=== PATIENT | female | born 1940 | race Caucasian/White ===

== ENCOUNTER 2023-09-10 13:59 | Inpatient (IN) | payer OTHER ==
[~2023-09-10] VITALS: Ht 152.4 cm; Wt 54.4 kg
[2023-09-10 14:19] VITALS: BP_SYST 140; PULSE 86; RESP 19; TEMP 97.2; O2SAT 97
[2023-09-10] MEDS ORDERED: NACL 0.9% 1,000 ML IV ONE (14:45)
[2023-09-10] MEDS ORDERED: KETOROLAC TROMETHAMINE 30 MG VIAL IVP ONE (14:45)
[2023-09-10 15:03] LABS: BASOPHILS # (AUTO) 0.1 K/uL (0.0-0.2); BASOPHILS % (AUTO) 0.7 % (0.0-2.0); EOSINOPHILS % (AUTO) 0.1 % (0.0-4.0); HEMATOCRIT 39.1 % (36-48); HEMOGLOBIN 12.7 g/dL (12.0-16.0); LYMPHOCYTES # (AUTO) 1.1 K/uL (1.0-5.5); LYMPHOCYTES % (AUTO) 7.7 % (20.5-51.5); MEAN CORPUSCULAR HEMOGLOBIN 29 pg (27-31); MEAN CORPUSCULAR HGB CONC 33 % (32-36); MEAN CORPUSCULAR VOLUME 89 fL (79.0-98.0); MONOCYTES # (AUTO) 0.8 K/uL (0.0-1.0); MONOCYTES % (AUTO) 5.5 % (1.7-9.3); NEUTROPHILS # (AUTO) 12.2 K/uL (1.8-7.7); PLATELET COUNT (AUTO) 348 K/uL (130-430); RED BLOOD CELL COUNT(AUTO) 4.39 MIL/uL (4.2-6.2); RED CELL DISTRIBUTION WIDTH 13.7 % (9.0-15.0); WHITE BLOOD COUNT (AUTO) 14.2 K/uL (4.8-10.8)
[2023-09-10 15:33] LABS: ALANINE AMINOTRANSFERASE 15 U/L (12-78); ALBUMIN 3.8 g/dL (3.4-4.8); ANION GAP 6 (5-15); ASPARTATE AMINOTRANSFERASE 15 U/L (10-37); BILIRUBIN,DIRECT 0.2 mg/dL (0.0-0.3); CALCIUM 10.2 mg/dL (8.4-11.0); CARBON DIOXIDE 27 mmol/L (23-29); CHLORIDE 103 mmol/L (98-107); CREATININE 0.76 mg/dL (0.55-1.30); GLUCOSE 150 mg/dL (74-106); POTASSIUM 3.1 mmol/L (3.5-5.1); SODIUM SERUM 136 mmol/L (136-145); TOTAL BILIRUBIN 0.5 mg/dL (0.0-1.0); UREA NITROGEN, BLOOD 23 mg/dL (8-21)
[2023-09-10] MEDS ORDERED: POTASSIUM CHLORIDE 20 MEQ TABLET.ER PO ONE (19:00)
[2023-09-10 19:26] LABS: BILIRUBIN,URINE NEGATIVE (NEGATIVE); CLARITY/URINE CLEAR (CLEAR); COLOR,URINE YELLOW (YELLOW); GLUCOSE,URINE NEGATIVE (NEGATIVE); KETONES,URINE TRACE (NEGATIVE); LEUKOCYTE ESTERASE ,URINE NEGATIVE (NEGATIVE); NITRITE, URINE NEGATIVE (NEGATIVE); PROTEIN URINE NEGATIVE (NEGATIVE); UROBILINOGEN,URINE 0.2 (0.2-1.0)
[2023-09-10 19:29] LABS: BLOOD, URINE TRACE (NEGATIVE)
[2023-09-10] MEDS ORDERED: KETOROLAC TROMETHAMINE 30 MG VIAL ONE (19:40)
[2023-09-10 19:43] LABS: BACTERIA,URINE MANY /HPF (None Seen); WBC,URINE 0-3 /HPF (0-3)
[2023-09-10] MEDS ORDERED: ACETAMINOPHEN 500 MG TABLET PO ONE (19:45)
[2023-09-10] MEDS ORDERED: cefTRIAXone 1 GM IVPB PREMIX 50 ML IV ONE (22:30)
[2023-09-10] MEDS ORDERED: metroNIDAZOLE 500 mg/NS 100 ML IV ONE (22:30)
[2023-09-10] MEDS ORDERED: cefTRIAXone 1 GM in D5W 50 ML IV SCH ×2 (23:00→23:15)
[2023-09-10] MEDS ORDERED: ONDANSETRON HCL 4 MG/2 ML VIAL IVP PRN (23:15)
[2023-09-10] MEDS ORDERED: PANTOPRAZOLE SODIUM 40 MG TAB PO ONE (23:15)
[2023-09-11] MEDS: KETOROLAC TROMETHAMINE 15 MG VIAL IVP PRN ×3 (01:00→19:09)
[2023-09-11] MEDS: cloNIDine HCL 0.1 MG TABLET PO PRN ×3 (01:51→10:21)
[2023-09-11 07:13] LABS: BASOPHILS # (AUTO) 0.1 K/uL (0.0-0.2); BASOPHILS % (AUTO) 0.9 % (0.0-2.0); EOSINOPHILS # (AUTO) 0.3 K/uL (0.0-0.4); EOSINOPHILS % (AUTO) 2.5 % (0.0-4.0); HEMATOCRIT 39.2 % (36-48); HEMOGLOBIN 13.2 g/dL (12.0-16.0); LYMPHOCYTES # (AUTO) 1.3 K/uL (1.0-5.5); LYMPHOCYTES % (AUTO) 11.8 % (20.5-51.5); MEAN CORPUSCULAR HEMOGLOBIN 30 pg (27-31); MEAN CORPUSCULAR HGB CONC 34 % (32-36); MEAN CORPUSCULAR VOLUME 89 fL (79.0-98.0); MONOCYTES # (AUTO) 0.9 K/uL (0.0-1.0); MONOCYTES % (AUTO) 8.3 % (1.7-9.3); NEUTROPHILS # (AUTO) 8.3 K/uL (1.8-7.7); NEUTROPHILS % (AUTO) 76.5 % (40.0-70.0); PLATELET COUNT (AUTO) 306 K/uL (130-430); RED BLOOD CELL COUNT(AUTO) 4.41 MIL/uL (4.2-6.2); RED CELL DISTRIBUTION WIDTH 13.8 % (9.0-15.0); WHITE BLOOD COUNT (AUTO) 10.8 K/uL (4.8-10.8)
[2023-09-11 07:30] LABS: INR 1.1 (0.8-1.2); PROTHROMBIN TIME 11.6 SECS (9.5-12.5)
[2023-09-11 08:01] LABS: ALANINE AMINOTRANSFERASE 15 U/L (12-78); ALBUMIN 3.1 g/dL (3.4-4.8); ANION GAP 6 (5-15); ASPARTATE AMINOTRANSFERASE 13 U/L (10-37); CALCIUM 10.2 mg/dL (8.4-11.0); CARBON DIOXIDE 27 mmol/L (23-29); CHLORIDE 105 mmol/L (98-107); CREATININE 0.54 mg/dL (0.55-1.30); FREE T4 (FREE THYROXINE) 1.2 ng/dl (0.8-1.5); GLUCOSE 113 mg/dL (74-106); LIPASE 24 U/L (16-77); POTASSIUM 3.8 mmol/L (3.5-5.1); SODIUM SERUM 138 mmol/L (136-145); THYROID STIMULATING HORMONE 1.42 uIu/mL (0.36-3.74); TOTAL BILIRUBIN 0.9 mg/dL (0.0-1.0); TOTAL PROTEIN, SERUM 6.2 g/dL (6.4-8.3); UREA NITROGEN, BLOOD 14 mg/dL (8-21)
[2023-09-11] MEDS: D5LR 1,000 ML IV SCH (13:58)
[2023-09-11 14:50] LABS: CHOLESTEROL 156 mg/dL (<200); HDL CHOLESTEROL 99 mg/dL (>55); TRIGLYCERIDES 36 mg/dL (30-150)
[2023-09-11] MEDS: PANTOPRAZOLE SODIUM 40 MG TAB PO SCH (15:22)
[2023-09-11] MEDS ORDERED: PANTOPRAZOLE SODIUM 40 MG TAB PO ONE (15:22)
[2023-09-11] MEDS ORDERED: ASPI-1393 PO (16:16)
[2023-09-11] MEDS ORDERED: LIDO1ADH48 TD (16:16)
[2023-09-11] MEDS ORDERED: ACET-2766 PO (16:16)
[2023-09-11] MEDS ORDERED: DOCU250C71 PO (16:16)
[2023-09-11] MEDS ORDERED: CLOP75TA32 PO (16:16)
[2023-09-11] MEDS ORDERED: NOR10 PO (16:16)
[2023-09-11] MEDS ORDERED: BUSP15TA3 PO (16:16)
[2023-09-11] MEDS ORDERED: METO50TA16 PO (16:36)
[2023-09-11] MEDS ORDERED: GABA300T25 (16:36)
[2023-09-11] MEDS ORDERED: VENL75CA56 PO (16:36)
[2023-09-11] MEDS ORDERED: FAMO40TA7 PO (16:36)
[2023-09-11] MEDS ORDERED: MEMA5TAB42 PO (16:36)
[2023-09-11] MEDS ORDERED: VENL150C53 PO (16:36)
[2023-09-11] MEDS ORDERED: PANT20TA16 PO (16:36)
[2023-09-11] MEDS ORDERED: ISOS30TA85 PO (16:36)
[2023-09-11] MEDS: ACETAMINOPHEN 325 MG TABLET PO PRN (17:57)
[2023-09-11 18:02] VITALS: BP_SYST 157; PULSE 98; RESP 18; TEMP 95.8; O2SAT 93
[2023-09-11] MEDS ORDERED: NITROGLYCERIN 0.4 MG TAB.SUBL SL PRN (19:00)
[2023-09-11] MEDS ORDERED: busPIRone HCL 5 MG TABLET PO ONE (19:15)
[2023-09-11] MEDS ORDERED: ISOSORBIDE MONONITRATE 30 MG TAB.ER.24H PO ONE (19:15)
[2023-09-11] MEDS ORDERED: cloNIDine HCL 0.1 MG TABLET PO PRN (19:15)
[2023-09-11] MEDS ORDERED: CLOPIDOGREL BISULFATE 75 MG TABLET PO ONE (19:15)
[2023-09-11 20:00] VITALS: BP_SYST 160; PULSE 88; RESP 18; TEMP 98.1; O2SAT 95
[2023-09-11] MEDS: DOCUSATE SODIUM 250 MG CAPSULE PO SCH (20:34)
[2023-09-11] MEDS: traMADol HCL HCL 50 MG TABLET (ULTRAM) PO SCH (20:35)
[2023-09-11] MEDS: cefTRIAXone 1 GM in D5W 50 ML IV SCH (23:07)
[2023-09-12] VITALS: BP_SYST 145; PULSE 100; RESP 18; TEMP 98; O2SAT 95
[2023-09-12] MEDS ORDERED: DILTIAZEM HCL 60 MG TABLET ONE (00:25)
[2023-09-12] MEDS ORDERED: dilTIAZem HCL IVP 5 MG/ML VIAL ONE (00:26)
[2023-09-12] MEDS ORDERED: DILTIAZEM HCL 60 MG TABLET PO ONE (00:30)
[2023-09-12] MEDS ORDERED: dilTIAZem HCL IVP 5 MG/ML VIAL IVP ONE (00:30)
[2023-09-12] MEDS: D5LR 1,000 ML IV SCH ×2 (04:59→20:20)
[2023-09-12] MEDS: KETOROLAC TROMETHAMINE 15 MG VIAL IVP PRN ×3 (06:10→18:15)
[2023-09-12 08:09] VITALS: BP_SYST 158; PULSE 98; RESP 18; TEMP 98.8; O2SAT 98
[2023-09-12] MEDS: MEMANTINE HCL 5 MG TABLET PO SCH (08:32)
[2023-09-12] MEDS: ASPIRIN 81 MG TABLET(ECOTRIN) PO SCH (08:33)
[2023-09-12] MEDS: ACETAMINOPHEN 500 MG TABLET PO SCH (08:34)
[2023-09-12] MEDS: busPIRone HCL 5 MG TABLET PO SCH (08:34)
[2023-09-12] MEDS: DOCUSATE SODIUM 250 MG CAPSULE PO SCH ×2 (08:34→20:16)
[2023-09-12] MEDS: Effexor XR 37.5 MG PO SCH (08:35)
[2023-09-12] MEDS: ISOSORBIDE MONONITRATE 30 MG TAB.ER.24H PO SCH (08:36)
[2023-09-12] MEDS: traMADol HCL HCL 50 MG TABLET (ULTRAM) PO SCH ×3 (08:37→20:16)
[2023-09-12] MEDS: PANTOPRAZOLE SODIUM 40 MG TAB PO SCH (08:38)
[2023-09-12] MEDS: METOPROLOL TARTRATE 50 MG TABLET PO SCH (08:38)
[2023-09-12] MEDS ORDERED: CLOPIDOGREL BISULFATE 75 MG TABLET PO SCH (09:00)
[2023-09-12] MEDS ORDERED: PANTOPRAZOLE SODIUM PO SCH (09:00)
[2023-09-12] MEDS ORDERED: amLODIPine BESYLATE 10 MG TABLET PO SCH (09:00)
[2023-09-12 11:31] VITALS: BP_SYST 137; PULSE 97; RESP 18; TEMP 98.4; O2SAT 97
[2023-09-12] MEDS: LIDOCAINE PATCH 5% 1 EA TP PRN (18:03)
[2023-09-12 18:06] VITALS: BP_SYST 149; PULSE 97; RESP 18; TEMP 97.4; O2SAT 97
[2023-09-12] MEDS ORDERED: ONDANSETRON HCL 4 MG/2 ML VIAL IVP PRN (18:30)
[2023-09-12] MEDS ORDERED: NALOXONE HCL 0.4 MG/ML AMP (NARCAN) IVP PRN (18:30)
[2023-09-12 20:00] VITALS: BP_SYST 158; PULSE 79; RESP 18; TEMP 97; O2SAT 95
[2023-09-12] MEDS: cefTRIAXone 1 GM in D5W 50 ML IV SCH (22:02)
[2023-09-12] MEDS: MORPHINE 2 MG/ML INJ. SYRINGE IVP PRN (22:45)
[2023-09-13] VITALS (10 sets, daily range): BP systolic 94–152; PULSE 60–170; RESP 16–19; TEMP 97.1–98.5; O2SAT 90–99
[2023-09-13] MEDS ORDERED: dilTIAZem HCL IVP 5 MG/ML VIAL IVP ONE (01:45)
[2023-09-13] MEDS ORDERED: DILTIAZEM HCL IV SCH (02:45)
[2023-09-13] MEDS ORDERED: D5W IV SCH (02:45)
[2023-09-13] MEDS ORDERED: METOPROLOL TARTRATE 5 MG/5 ML VIAL IVP ONE (05:30)
[2023-09-13] MEDS: traMADol HCL HCL 50 MG TABLET (ULTRAM) PO SCH ×2 (09:03→20:20)
[2023-09-13] MEDS: ASPIRIN 81 MG TABLET(ECOTRIN) PO SCH (09:03)
[2023-09-13] MEDS: ISOSORBIDE MONONITRATE 30 MG TAB.ER.24H PO SCH (09:05)
[2023-09-13] MEDS: DILTIAZEM HCL 120 MG CAP.SR.24H PO SCH (09:05)
[2023-09-13] MEDS: ACETAMINOPHEN 500 MG TABLET PO SCH (09:06)
[2023-09-13] MEDS: MEMANTINE HCL 5 MG TABLET PO SCH (09:06)
[2023-09-13] MEDS: DOCUSATE SODIUM 250 MG CAPSULE PO SCH ×2 (09:06→20:19)
[2023-09-13] MEDS: PANTOPRAZOLE SODIUM 40 MG TAB PO SCH (09:06)
[2023-09-13] MEDS: busPIRone HCL 5 MG TABLET PO SCH (09:07)
[2023-09-13] MEDS: METOPROLOL TARTRATE 50 MG TABLET PO SCH (09:07)
[2023-09-13] MEDS: Effexor XR 37.5 MG PO SCH (09:22)
[2023-09-13] MEDS ORDERED: CYANOCOBALAMIN 1000 MCG/ML VIAL IM ONE (17:00)
[2023-09-13] MEDS: D5LR 1,000 ML IV SCH (20:21)
[2023-09-13] MEDS: cefTRIAXone 1 GM in D5W 50 ML IV SCH (21:31)
[2023-09-13] MEDS: KETOROLAC TROMETHAMINE 15 MG VIAL IVP PRN (22:37)
[2023-09-14] VITALS: BP_SYST 134; PULSE 78; RESP 16; TEMP 98.7; O2SAT 97
[2023-09-14] MEDS: LIDOCAINE PATCH 5% 1 EA TP PRN (04:10)
[2023-09-14 08:00] VITALS: BP_SYST 164; PULSE 79; RESP 20; TEMP 98.3; O2SAT 96
[2023-09-14] MEDS: busPIRone HCL 5 MG TABLET PO SCH (09:13)
[2023-09-14] MEDS: METOPROLOL TARTRATE 50 MG TABLET PO SCH (09:14)
[2023-09-14] MEDS: ACETAMINOPHEN 500 MG TABLET PO SCH (09:15)
[2023-09-14] MEDS: MEMANTINE HCL 5 MG TABLET PO SCH (09:15)
[2023-09-14] MEDS: ASPIRIN 81 MG TABLET(ECOTRIN) PO SCH (09:15)
[2023-09-14] MEDS: PANTOPRAZOLE SODIUM 40 MG TAB PO SCH (09:15)
[2023-09-14] MEDS: ISOSORBIDE MONONITRATE 30 MG TAB.ER.24H PO SCH (09:15)
[2023-09-14] MEDS: Effexor XR 37.5 MG PO SCH (09:16)
[2023-09-14] MEDS: CYANOCOBALAMIN (VITAMIN B-12) 1,000 MCG TABLET PO SCH (09:16)
[2023-09-14] MEDS: DOCUSATE SODIUM 250 MG CAPSULE PO SCH ×2 (09:16→22:01)
[2023-09-14] MEDS: DILTIAZEM HCL 120 MG CAP.SR.24H PO SCH (09:16)
[2023-09-14] MEDS: traMADol HCL HCL 50 MG TABLET (ULTRAM) PO SCH ×4 (09:21→22:13)
[2023-09-14 11:04] VITALS: BP_SYST 162; PULSE 82; RESP 16; TEMP 98.7; O2SAT 96
[2023-09-14 15:08] VITALS: BP_SYST 136; PULSE 61; RESP 15; TEMP 97.3; O2SAT 93
[2023-09-14 16:00] VITALS: BP_SYST 140; PULSE 64; RESP 18; TEMP 98; O2SAT 95
[2023-09-14] MEDS: MORPHINE 2 MG/ML INJ. SYRINGE IVP PRN ×3 (16:00→21:07)
[2023-09-14 20:00] VITALS: BP_SYST 158; PULSE 81; RESP 18; TEMP 98.9; O2SAT 16
[2023-09-14] MEDS: cefTRIAXone 1 GM in D5W 50 ML IV SCH (21:57)
[2023-09-15 01:21] VITALS: BP_SYST 143; PULSE 87; RESP 16; TEMP 98.6; O2SAT 93
[2023-09-15] MEDS: D5LR 1,000 ML IV SCH ×2 (01:22→08:20)
[2023-09-15] MEDS: KETOROLAC TROMETHAMINE 15 MG VIAL IVP PRN (04:34)
[2023-09-15 06:17] LABS: BASOPHILS # (AUTO) 0.1 K/uL (0.0-0.2); EOSINOPHILS # (AUTO) 0.1 K/uL (0.0-0.4); HEMATOCRIT 34.3 % (36-48); HEMOGLOBIN 12.1 g/dL (12.0-16.0); LYMPHOCYTES # (AUTO) 1.1 K/uL (1.0-5.5); LYMPHOCYTES % (AUTO) 16.6 % (20.5-51.5); MEAN CORPUSCULAR HEMOGLOBIN 34 pg (27-31); MEAN CORPUSCULAR HGB CONC 35 % (32-36); MEAN CORPUSCULAR VOLUME 96 fL (79.0-98.0); MONOCYTES # (AUTO) 0.7 K/uL (0.0-1.0); MONOCYTES % (AUTO) 10.1 % (1.7-9.3); NEUTROPHILS # (AUTO) 4.7 K/uL (1.8-7.7); NEUTROPHILS % (AUTO) 70.3 % (40.0-70.0); PLATELET COUNT (AUTO) 335 K/uL (130-430); RED BLOOD CELL COUNT(AUTO) 3.59 MIL/uL (4.2-6.2); RED CELL DISTRIBUTION WIDTH 13.2 % (9.0-15.0); WHITE BLOOD COUNT (AUTO) 6.7 K/uL (4.8-10.8)
[2023-09-15 06:47] LABS: ANION GAP 13 (5-15); CALCIUM 10.4 mg/dL (8.4-11.0); CARBON DIOXIDE 28 mmol/L (23-29); CHLORIDE 100 mmol/L (98-107); CREATININE 0.54 mg/dL (0.55-1.30); GLUCOSE 107 mg/dL (74-106); POTASSIUM 3.2 mmol/L (3.5-5.1); SODIUM SERUM 141 mmol/L (136-145); UREA NITROGEN, BLOOD 9 mg/dL (8-21)
[2023-09-15 08:18] VITALS: BP_SYST 146; PULSE 78; RESP 17; TEMP 97; O2SAT 78; O2SAT 95
[2023-09-15] MEDS: METOPROLOL TARTRATE 50 MG TABLET PO SCH (08:48)
[2023-09-15] MEDS: PANTOPRAZOLE SODIUM 40 MG TAB PO SCH (09:00)
[2023-09-15] MEDS: ACETAMINOPHEN 500 MG TABLET PO SCH (09:00)
[2023-09-15] MEDS: MEMANTINE HCL 5 MG TABLET PO SCH (09:00)
[2023-09-15] MEDS: busPIRone HCL 5 MG TABLET PO SCH (09:00)
[2023-09-15] MEDS: Effexor XR 37.5 MG PO SCH (09:00)
[2023-09-15] MEDS: ISOSORBIDE MONONITRATE 30 MG TAB.ER.24H PO SCH (09:00)
[2023-09-15] MEDS: CYANOCOBALAMIN (VITAMIN B-12) 1,000 MCG TABLET PO SCH (09:00)
[2023-09-15] MEDS: ASPIRIN 81 MG TABLET(ECOTRIN) PO SCH (09:00)
[2023-09-15] MEDS: DILTIAZEM HCL 120 MG CAP.SR.24H PO SCH (09:00)
[2023-09-15] MEDS: DOCUSATE SODIUM 250 MG CAPSULE PO SCH ×2 (09:00→21:45)
[2023-09-15] MEDS: traMADol HCL HCL 50 MG TABLET (ULTRAM) PO SCH ×4 (09:00→21:00)
[2023-09-15] MEDS ORDERED: POTASSIUM CHLORIDE 40 MEQ in NS 250 ML IV ONE (09:15)
[2023-09-15] MEDS ORDERED: HYDROmorphone 2 MG/ML VIAL ONE (10:25)
[2023-09-15] MEDS ORDERED: MIDAZOLAM HCL 2 MG/2 ML VIAL (VERSED) ONE (10:26)
[2023-09-15] MEDS ORDERED: HYDROmorphone 1 MG/ML INJ. CARTRIDGE IVP PRN (12:45)
[2023-09-15] MEDS ORDERED: NALOXONE HCL 0.4 MG/ML AMP (NARCAN) IVP PRN (12:45)
[2023-09-15] MEDS ORDERED: ONDANSETRON HCL 4 MG/2 ML VIAL IVP PRN (12:45)
[2023-09-15] MEDS ORDERED: NS IRRIG SOLN 1000 ML IR ONE (13:19)
[2023-09-15] MEDS ORDERED: PROPOFOL 200MG/ 20ML VIAL (DIPRIVAN) IV ONE (13:19)
[2023-09-15] MEDS ORDERED: SEVOFLURANE 15 MIN GAS INH ONE (13:19)
[2023-09-15] MEDS ORDERED: LR 1,000 ML IV.SOLN IV ONE (13:19)
[2023-09-15] MEDS ORDERED: GLYCOPYRROLATE 0.2 MG/ML VIAL ONE (13:19)
[2023-09-15] MEDS ORDERED: ePHEDrine sulfate 50 MG/ML VIAL ONE (13:19)
[2023-09-15] MEDS ORDERED: NS IRRIG SOLN 5000 ML IR ONE (13:19)
[2023-09-15] MEDS ORDERED: BUPIVACAINE /PF 0.25% 30 ML VIAL INJ ONE (13:19)
[2023-09-15] MEDS ORDERED: TRANEXAMIC ACID 1,000 MG/10 ML VIAL ONE (13:19)
[2023-09-15] MEDS ORDERED: DEXAMETHASONE SOD PHOSPHATE 4 MG/ML VIAL ONE (13:19)
[2023-09-15] MEDS ORDERED: SUCCINYLCHOLINE CHLORIDE 20 MG/ML(QUELICIN) ONE (13:19)
[2023-09-15] MEDS ORDERED: hydrALAZINE HCL 20 MG/ML VIAL ONE (14:15)
[2023-09-15] MEDS ORDERED: hydrALAZINE HCL 20 MG/ML VIAL IVP ONE (14:20)
[2023-09-15] MEDS: ceFAZolin SODIUM 2 GM in D5W 100 ML IV SCH ×2 (18:15→23:23)
[2023-09-15 20:00] VITALS: BP_SYST 138; PULSE 66; RESP 18; TEMP 97.5; O2SAT 96
[2023-09-15] MEDS ORDERED: MAG-AL HYDROX/SIMETH 30 ML UDC PO PRN (20:30)
[2023-09-15] MEDS: cefTRIAXone 1 GM in D5W 50 ML IV SCH (21:48)
[2023-09-15] MEDS ORDERED: MAG-AL HYDROX/SIMETH 30 ML UDC ONE (21:53)
[2023-09-15] MEDS ORDERED: FAMOTIDINE 20 MG TABLET ONE (21:56)
[2023-09-15] MEDS ORDERED: MAG-AL HYDROX/SIMETH 30 ML UDC PO ONE (22:00)
[2023-09-15] MEDS ORDERED: FAMOTIDINE 20 MG TABLET PO ONE (22:00)
[2023-09-15] MEDS: MORPHINE 2 MG/ML INJ. SYRINGE IVP PRN (22:06)
[2023-09-16 00:02] VITALS: BP_SYST 152; PULSE 100; RESP 17; TEMP 97.5; O2SAT 98
[2023-09-16] MEDS: MORPHINE 2 MG/ML INJ. SYRINGE IVP PRN ×2 (01:57→05:41)
[2023-09-16] MEDS: D5LR 1,000 ML IV SCH (04:20)
[2023-09-16] MEDS: ceFAZolin SODIUM 2 GM in D5W 100 ML IV SCH (05:33)
[2023-09-16 07:31] LABS: ALANINE AMINOTRANSFERASE 15 U/L (12-78); ALBUMIN 2.5 g/dL (3.4-4.8); ANION GAP 8 (5-15); ASPARTATE AMINOTRANSFERASE 17 U/L (10-37); CALCIUM 10.5 mg/dL (8.4-11.0); CARBON DIOXIDE 28 mmol/L (23-29); CHLORIDE 102 mmol/L (98-107); CREATININE 0.63 mg/dL (0.55-1.30); GLUCOSE 116 mg/dL (74-106); POTASSIUM 3.8 mmol/L (3.5-5.1); SODIUM SERUM 138 mmol/L (136-145); TOTAL BILIRUBIN 0.5 mg/dL (0.0-1.0); TOTAL PROTEIN, SERUM 5.6 g/dL (6.4-8.3); UREA NITROGEN, BLOOD 13 mg/dL (8-21)
[2023-09-16 08:35] LABS: BASOPHILS % (AUTO) 0.4 % (0.0-2.0); EOSINOPHILS % (AUTO) 0.1 % (0.0-4.0); HEMATOCRIT 29.8 % (36-48); HEMOGLOBIN 10.8 g/dL (12.0-16.0); LYMPHOCYTES # (AUTO) 1.4 K/uL (1.0-5.5); LYMPHOCYTES % (AUTO) 15.5 % (20.5-51.5); MEAN CORPUSCULAR HEMOGLOBIN 36 pg (27-31); MEAN CORPUSCULAR HGB CONC 36 % (32-36); MEAN CORPUSCULAR VOLUME 98 fL (79.0-98.0); MONOCYTES # (AUTO) 1.2 K/uL (0.0-1.0); NEUTROPHILS # (AUTO) 6.3 K/uL (1.8-7.7); PLATELET COUNT (AUTO) 350 K/uL (130-430); RED BLOOD CELL COUNT(AUTO) 3.04 MIL/uL (4.2-6.2); RED CELL DISTRIBUTION WIDTH 13.2 % (9.0-15.0)
[2023-09-16 09:01] LABS: WHITE BLOOD COUNT (AUTO) 8.8 K/uL (4.8-10.8)
[2023-09-16 09:24] VITALS: BP_SYST 148; PULSE 93; RESP 15; TEMP 98.4; O2SAT 94
[2023-09-16] MEDS: ENOXAPARIN SODIUM 30 MG/0.3 ML SYRINGE SUBCUT SCH (10:07)
[2023-09-16] MEDS: CYANOCOBALAMIN (VITAMIN B-12) 1,000 MCG TABLET PO SCH (10:07)
[2023-09-16] MEDS: CLOPIDOGREL BISULFATE 75 MG TABLET PO SCH (10:07)
[2023-09-16] MEDS: PANTOPRAZOLE SODIUM 40 MG TAB PO SCH (10:08)
[2023-09-16] MEDS: traMADol HCL HCL 50 MG TABLET (ULTRAM) PO SCH (10:08)
[2023-09-16] MEDS: ISOSORBIDE MONONITRATE 30 MG TAB.ER.24H PO SCH (10:09)
[2023-09-16] MEDS: DILTIAZEM HCL 120 MG CAP.SR.24H PO SCH (10:09)
[2023-09-16] MEDS: ACETAMINOPHEN 500 MG TABLET PO SCH (10:10)
[2023-09-16] MEDS: FAMOTIDINE 20 MG TABLET PO SCH (10:10)
[2023-09-16] MEDS: METOPROLOL TARTRATE 50 MG TABLET PO SCH (10:10)
[2023-09-16] MEDS: DOCUSATE SODIUM 250 MG CAPSULE PO SCH ×2 (10:17→20:42)
[2023-09-16] MEDS: Effexor XR 37.5 MG PO SCH (10:17)
[2023-09-16] MEDS: busPIRone HCL 5 MG TABLET PO SCH (11:39)
[2023-09-16 11:58] VITALS: BP_SYST 150; PULSE 99; RESP 17; TEMP 98.3; O2SAT 94
[2023-09-16 16:20] VITALS: BP_SYST 127; PULSE 63; RESP 18; TEMP 98.1; O2SAT 97
[2023-09-16 19:55] VITALS: BP_SYST 138; PULSE 79; RESP 16; TEMP 99; O2SAT 98
[2023-09-16] MEDS: MEMANTINE HCL 5 MG TABLET PO SCH (20:42)
[2023-09-16] MEDS: traMADol HCL HCL 50 MG TABLET (ULTRAM) PO PRN (20:43)
[2023-09-16] MEDS ORDERED: MEMANTINE HCL 5 MG TABLET PO SCH (21:00)
[2023-09-16] MEDS: cefTRIAXone 1 GM in D5W 50 ML IV SCH (22:59)
[2023-09-17] VITALS (7 sets, daily range): BP systolic 108–165; PULSE 67–98; RESP 16–20; TEMP 98.1–99.2; O2SAT 94–96
[2023-09-17] MEDS: D5LR 1,000 ML IV SCH ×2 (03:07→16:57)
[2023-09-17] MEDS: traMADol HCL HCL 50 MG TABLET (ULTRAM) PO PRN (05:59)
[2023-09-17] MEDS: PANTOPRAZOLE SODIUM 40 MG TAB PO SCH (10:38)
[2023-09-17] MEDS: ACETAMINOPHEN 500 MG TABLET PO SCH (10:39)
[2023-09-17] MEDS: ISOSORBIDE MONONITRATE 30 MG TAB.ER.24H PO SCH (10:39)
[2023-09-17] MEDS: CYANOCOBALAMIN (VITAMIN B-12) 1,000 MCG TABLET PO SCH (10:39)
[2023-09-17] MEDS: DOCUSATE SODIUM 250 MG CAPSULE PO SCH ×2 (10:40→21:28)
[2023-09-17] MEDS: FAMOTIDINE 20 MG TABLET PO SCH (10:40)
[2023-09-17] MEDS: ENOXAPARIN SODIUM 30 MG/0.3 ML SYRINGE SUBCUT SCH (10:40)
[2023-09-17] MEDS: Effexor XR 37.5 MG PO SCH (10:41)
[2023-09-17] MEDS: DILTIAZEM HCL 120 MG CAP.SR.24H PO SCH (10:41)
[2023-09-17] MEDS: METOPROLOL TARTRATE 50 MG TABLET PO SCH (10:42)
[2023-09-17] MEDS: CLOPIDOGREL BISULFATE 75 MG TABLET PO SCH (10:42)
[2023-09-17] MEDS: busPIRone HCL 5 MG TABLET PO SCH (12:25)
[2023-09-17] MEDS: MEMANTINE HCL 5 MG TABLET PO SCH (21:28)
[2023-09-17] MEDS: cefTRIAXone 1 GM in D5W 50 ML IV SCH (21:29)
[2023-09-18 01:03] VITALS: BP_SYST 137; PULSE 65; RESP 17; TEMP 98.2; O2SAT 94
[2023-09-18] MEDS: ACETAMINOPHEN 325 MG TABLET PO PRN (03:28)
[2023-09-18 08:00] VITALS: BP_SYST 133; PULSE 88; RESP 18; TEMP 97.3; O2SAT 96
[2023-09-18] MEDS: ISOSORBIDE MONONITRATE 30 MG TAB.ER.24H PO SCH (09:40)
[2023-09-18] MEDS: DILTIAZEM HCL 120 MG CAP.SR.24H PO SCH (09:41)
[2023-09-18] MEDS: CLOPIDOGREL BISULFATE 75 MG TABLET PO SCH (09:41)
[2023-09-18] MEDS: FAMOTIDINE 20 MG TABLET PO SCH (09:42)
[2023-09-18] MEDS: ACETAMINOPHEN 500 MG TABLET PO SCH (09:42)
[2023-09-18] MEDS: DOCUSATE SODIUM 250 MG CAPSULE PO SCH (09:42)
[2023-09-18] MEDS: ENOXAPARIN SODIUM 30 MG/0.3 ML SYRINGE SUBCUT SCH (09:43)
[2023-09-18] MEDS: CYANOCOBALAMIN (VITAMIN B-12) 1,000 MCG TABLET PO SCH (09:43)
[2023-09-18] MEDS: METOPROLOL TARTRATE 50 MG TABLET PO SCH (09:43)
[2023-09-18] MEDS: PANTOPRAZOLE SODIUM 40 MG TAB PO SCH (09:43)
[2023-09-18 11:03] VITALS: BP_SYST 151; PULSE 94; RESP 16; TEMP 97.5; O2SAT 94
[2023-09-18 14:19] VITALS: BP_SYST 151; PULSE 94; RESP 18; TEMP 97.5; O2SAT 94
[2023-09-18 15:23] VITALS: BP_SYST 149; PULSE 91; RESP 15; TEMP 97.8; O2SAT 93
== END 2023-09-18 15:40 | DRG 522 ==
LOC: SED 13:59 → STU 21:43
PROVIDERS: ADMIT Internal Medicine; ATTEND Internal Medicine
PROC: 0SRS0JZ Replacement of Left Hip Joint, Femoral Surface with Synthetic Substitute, Open Approach (ICD-10-PCS; principal; 2023-09-15 11:10)
DX: S72.22XA Displaced subtrochanteric fracture of left femur, initial encounter for closed fracture (principal); E44.0 Moderate protein-calorie malnutrition; I48.92 Unspecified atrial flutter; D62 Acute posthemorrhagic anemia; I10 Essential (primary) hypertension; F41.9 Anxiety disorder, unspecified; I25.10 Atherosclerotic heart disease of native coronary artery without angina pectoris; F03.B0 Unspecified dementia, moderate, without behavioral disturbance, psychotic disturbance, mood disturbance, and anxiety; E78.5 Hyperlipidemia, unspecified; W01.0XXA Fall on same level from slipping, tripping and stumbling without subsequent striking against object, initial encounter; I48.0 Paroxysmal atrial fibrillation; Z79.82 Long term (current) use of aspirin; Z90.710 Acquired absence of both cervix and uterus; Z88.5 Allergy status to narcotic agent; Z79.899 Other long term (current) drug therapy; Z79.02 Long term (current) use of antithrombotics/antiplatelets; Y93.89 Activity, other specified; Y92.89 Other specified places as the place of occurrence of the external cause; Y99.8 Other external cause status; Z79.01 Long term (current) use of anticoagulants; Z68.23 Body mass index [BMI] 23.0-23.9, adult; I11.9 Hypertensive heart disease without heart failure; R10.9 Unspecified abdominal pain
CPT/HCPCS: 36415; 71045; 72131; 72170-TC; 72192-TC; 73501; 76376; 78226; 80048; 80053; 80061; 80076; 81000; 81001; 81015; 82607; 82962; 83605; 83690; 83735; 84439; 84443; 84484; 85025; 85610-TC; 85730-TC; 86886; 86900; 86901; 87040; 87081; 87086; 88304; 88305; 88311; 93005; 93306; 96361; 96374; 97110-GP; 97163-GP; 97530-GP; 99285; A9537; C1776; G0378; J0330; J0360; J0696; J1100; J1170; J1650; J1885; J2270; J2704; J3420; J3465; J3480; J3490; J7050; J7060; J7120

== ENCOUNTER 2023-10-11 10:17 | Emergency (ER) | payer OTHER ==
[~2023-10-11] VITALS: Ht 157.5 cm; Wt 54.4 kg
[2023-10-11 10:17] VITALS: BP_SYST 130; PULSE 84; RESP 20; TEMP 98.2; O2SAT 98
[~2023-10-11 10:17] MED LIST: ACET-2766 PO; ASPI-1393 PO; BUSP15TA3 PO; DOCU250C71 PO; FAMO40TA7 PO; GABA300T25; ISOS30TA85 PO; LIDO1ADH48 TD; MEMA5TAB42 PO; METO50TA16 PO; NOR10 PO; PANT20TA16 PO; VENL150C53 PO; VENL75CA56 PO
== END 2023-10-11 12:27 | disposition left against medical advice (07) ==
LOC: SED 10:17
DX: M54.50 Low back pain, unspecified (principal); R10.2 Pelvic and perineal pain; I10 Essential (primary) hypertension; Z88.5 Allergy status to narcotic agent; Z79.899 Other long term (current) drug therapy
CPT/HCPCS: 93005; 99283